=== PATIENT | male | born 1985 | race Caucasian/White ===

== ENCOUNTER 2017-02-12 09:23 | Emergency (ER) | payer OTHER ==
[~2017-02-12] VITALS: Ht 182.9 cm; Wt 78.2 kg
[2017-02-12 09:25] VITALS: TEMP 36.6; Ht 182.9 cm; Wt 78.2 kg
--- NOTE | 2017-02-12 09:50 | EMERGENCY ROOM VISIT NOTE ---
History Report prepared by Pamela: Griselda Puri Under the Supervision of: Dr. Cesar Thurston M.D. First contact with patient: 09:34 Chief Complaint: RESPIRATORY PROBLEMS Stated Complaint: PAIN ON LEFT SIDE W/DEEP BREATHS History of Present Illness The patient is a 32 year old male who presents to the Emergency Room with complaints of constant respiratory symptoms beginning this morning. The patient states that he woke up this morning and noticed that when he takes a deep breath he has pain in his lower left side that radiates into his left flank. He rates this pain as a 7/10 in severity and states that it only occurs with taking a deep breath. He denies cough. 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 He went to [facility] this morning and was sent to the ED for further evaluation. The patient denies any personal or family history of blood clots. Source of History: patient Onset: this morning Position: chest Symptom Intensity: 7/10 Timing: constant Modifying Factors (Worsening): breathing Associated Symptoms: No cough Review of Systems See HPI for pertinent positives & negatives. A total of 10 systems reviewed and were otherwise negative. Past Medical & Surgical Medical Problems: (1) Childhood asthma Surgical Problems: (1) Hx of cholecystectomy Family History Gallbladder disease Heart disease Social History Smoking Status: Never Smoker Smokeless Tobacco Use: No Alcohol Use: occasionally Marital Status: single Housing Status: lives alone Occupation Status: employed Current/Historical Medications Miscellaneous Medications None (Patient States No Home Meds) Allergies Coded Allergies: No Known Allergies (Unverified , NONE, 02/12/17) Physical Exam Vital Signs Date Time Temp Pulse Resp B/P (MAP) Pulse Ox O2 Delivery O2 Flow Rate FiO2 02/12/17 11:33 73 19 121/74 99 02/12/17 10:56 60 16 118/74 99 Room Air 02/12/17 10:02 100 Room Air 02/12/17 09:59 62 02/12/17 09:25 36.6 71 18 127/88 100 Room Air Physical Exam GENERAL: Patient is a healthy-appearing well-nourished 32 year old male. HEAD: Normocephalic atraumatic EYES: Ocular movements intact pupils equal and react to light OROPHARYNX mucous membranes are moist no exudates present no erythema or edema present NECK: Supple no nuchal rigidity CHEST: Good equal expansion LUNGS: Clear and equal to auscultation CARDIAC: Normal S1 and S2 ABDOMEN: Soft nontender no guarding BACK: No CVA tenderness EXTREMITIES: No pain upon palpation normal muscle strength in all groups no clubbing cyanosis or edema NEURO: Patient is following commands is answering questions appropriately. Alert and oriented x3 Cranial Nerves 2-12 grossly intact Medical Decision & Procedures ER Provider Diagnostic Interpretation: Radiology results as stated below per my review and radiologist interpretation: TWO VIEW CHEST CLINICAL HISTORY: Left-sided chest pain. FINDINGS: PA and lateral chest radiographs are obtained. No prior studies are available for comparison at the time of dictation. The cardiomediastinal silhouette is unremarkable. The lungs and pleural spaces are clear. There is no pneumothorax. The bony thorax appears intact. Cholecystectomy clips are seen in the right upper quadrant. IMPRESSION: No active disease in the chest. Electronically signed by: Carlos Wayne M.D. 02/12/2017 10:37 AM Dictated Date/Time: 02/12/2017 10:36 AM Laboratory Results 02/12/17 10:00 Red Blood Count 4.58, Mean Corpuscular Volume 95.2, Mean Corpuscular Hemoglobin 32.1, Mean Corpuscular Hemoglobin Concent 33.7, Mean Platelet Volume 9.4, Neutrophils (%) (Auto) 71.7, Lymphocytes (%) (Auto) 18.0, Monocytes (%) (Auto) 8.1, Eosinophils (%) (Auto) 1.7, Basophils (%) (Auto) 0.4, Neutrophils # (Auto) 5.78, Lymphocytes # (Auto) 1.45, Monocytes # (Auto) 0.65, Eosinophils # (Auto) 0.14, Basophils # (Auto) 0.03 02/12/17 10:00 Test 02/12/17 10:00 02/12/17 10:06 White Blood Count 8.06 K/uL (4.8-10.8) Red Blood Count 4.58 M/uL (4.7-6.1) Hemoglobin 14.7 g/dL (14.0-18.0) Hematocrit 43.6 % (42-52) Mean Corpuscular Volume 95.2 fL (80-100) Mean Corpuscular Hemoglobin 32.1 pg (25-34) Mean Corpuscular Hemoglobin Concent 33.7 g/dl (32-36) Platelet Count 206 K/uL (130-400) Mean Platelet Volume 9.4 fL (7.4-10.4) Neutrophils (%) (Auto) 71.7 % Lymphocytes (%) (Auto) 18.0 % Monocytes (%) (Auto) 8.1 % Eosinophils (%) (Auto) 1.7 % Basophils (%) (Auto) 0.4 % Neutrophils # (Auto) 5.78 K/uL (1.4-6.5) Lymphocytes # (Auto) 1.45 K/uL (1.2-3.4) Monocytes # (Auto) 0.65 K/uL (0.11-0.59) Eosinophils # (Auto) 0.14 K/uL (0-0.5) Basophils # (Auto) 0.03 K/uL (0-0.2) RDW Standard Deviation 40.6 fL (36.4-46.3) RDW Coefficient of Variation 11.8 % (11.5-14.5) Immature Granulocyte % (Auto) 0.1 % Immature Granulocyte # (Auto) 0.01 K/uL (0.00-0.02) Est Creatinine Clear Calc Drug Dose 150.4 ml/min Estimated GFR () 138.0 Estimated GFR (Non- 119.0 BUN/Creatinine Ratio 23.8 (10-20) Calcium Level 8.7 mg/dl (8.5-10.1) Total Bilirubin 0.6 mg/dl (0.2-1) Direct Bilirubin 0.1 mg/dl (0-0.2) Aspartate Amino Transf (AST/SGOT) 18 U/L (15-37) Alanine Aminotransferase (ALT/SGPT) 20 U/L (12-78) Alkaline Phosphatase 73 U/L (45-117) Total Creatine Kinase 121 U/L (39-308) Creatine Kinase MB 3.6 ng/ml (0.5-3.6) Creatine Kinase MB Ratio 3.0 (0-3.0) Troponin I < 0.015 ng/ml (0-0.045) Total Protein 7.4 gm/dl (6.4-8.2) Albumin 4.2 gm/dl (3.4-5.0) Lipase 116 U/L (73-393) Bedside Hemoglobin 15.0 g/dl (14.0-18.0) Bedside Hematocrit 44 % (42-52) Bedside D-Dimer 284 ng/mlFEU (0-450) Bedside Sodium 140 mEq/L (135-144) Bedside Potassium 4.2 mEq/L (3.3-5.0) Bedside Chloride 101 mEq/L (101-112) Bedside Total CO2 28 mEq/l (24-31) Anion Gap 17.0 mmol/L (16-25) Bedside Blood Urea Nitrogen 19 mg/dl (7-18) Bedside Creatinine 0.8 mg/dl (0.6-1.3) Bedside Glucose (other) 103 mg/dl (70-99) Bedside Ionized Calcium (Katy) 1.19 mmol/l (1.12-1.32) Labs reviewed by ED physician. Medications Administered Medications (Trade) Dose Ordered Sig/Stephen Route Start Time Stop Time Status Last Admin Dose Admin Acetaminophen (Tylenol Tab) 1,000 mg NOW STAT PO 02/12/17 10:47 02/12/17 10:48 DC 02/12/17 10:47 1,000 MG Albuterol/ Ipratropium (Duoneb) 3 ml NOW STAT INH 02/12/17 10:47 02/12/17 10:48 DC 02/12/17 10:47 3 ML ECG Indication: SOB/dyspnea Rate (beats per minute): 58 Rhythm: sinus bradycardia Findings: no acute ischemic change, no ectopy ED Course 0934: Past medical records reviewed. The patient was evaluated in room C3. A complete history and physical examination was performed. I attempted to open the patient's chest x-ray from [facility], but this was unsuccessful. 1047: DuoNeb 3 ml INH, Tylenol tab 1000 mg PO 1105: I reassessed the patient at this time. He is feeling better and resting comfortably. I discussed the results and treatment plan with the patient. I answered all pertaining questions that he had. He expressed understanding and verbalized agreement. The patient will be discharged home. Medical Decision Etiologies such as cardiac ischemia, aortic dissection, pulmonary embolism, pneumonia, pneumothorax, musculoskeletal, infections, pericarditis, myocarditis , esophageal rupture, gastrointestinal, as well as others were entertained. Medication Reconciliation: I attest that I have personally reviewed the patient' s current medication list Blood Pressure Screening: Patient was found to have an elevated blood pressure and was referred to their primary care doctor for recheck and further treatment This is a 32-year-old male who [facility] concerns that the patient is having low back pain when he takes a deep breath. The patient has a history of asthma however has no evidence of wheezing on examination. Based on the nature of the complaint patient was sent for two-view chest x-ray however this did not show any acute process. In addition the patient has a normal d- dimer EKG as well as CK-MB and troponin fractions. Based on these findings I felt that the patient can be safely discharged home for follow-up with his primary care physician. Patient was in agreement with the treatment plan. Impression Primary Impression: Back pain Scribe Attestation The scribe's documentation has been prepared under my direction and personally reviewed by me in its entirety. I confirm that the note above accurately reflects all work, treatment, procedures, and medical decision making performed by me. Departure Information Dispostion Home / Self-Care Referrals No Doctor, Assigned (PCP) Forms HOME CARE DOCUMENTATION FORM, IMPORTANT VISIT INFORMATION, WORK / SCHOOL INSTRUCTIONS Patient Instructions Back Pain - [facility], My [facility] Additional Instructions You were found to have an elevated blood pressure today (>120 sytolic or >90 diastolic). Per medicare guidelines, you need to follow up with this blood pressure screening with your Primary Care Physician (PCP). For a new PCP call [phone]. You have been examined and treated today on an emergency basis only. This is not a substitute for, or an effort to provide, complete comprehensive medical care. It is impossible to recognize and treat all injuries or illnesses in a single emergency department visit. It is therefore important that you follow up closely with your PCP. Call as soon as possible for an appointment. Thank you for your time and consideration. I look forward to speaking with you again soon. Please don't hesitate to call us if you have any questions. Problem Qualifiers Primary Impression: Back pain Back pain location: thoracic back pain Chronicity: acute Back pain laterality: left Qualified Codes: M54.6 - Pain in thoracic spine
[2017-02-12 10:02] VITALS: O2SAT 100
[2017-02-12 10:24] LABS: ISTAT CREATININE 0.8 mg/dl (0.6-1.3); ISTAT IONIZED CALCIUM 1.19 mmol/l (1.12-1.32)
[2017-02-12 10:31] LABS: BASO % 0.4 %; BASO ABS # 0.03 K/uL (0-0.2); COMPLETE YES; EOS % 1.7 %; HEMATOCRIT 43.6 % (42-52); IG% 0.1 %; LYMPH ABS # 1.45 K/uL (1.2-3.4); MEAN CELL VOLUME 95.2 fL (80-100); MEAN CORPUSCULAR HEMOGLOBIN 32.1 pg (25-34); MEAN CORPUSCULAR HGB CONC 33.7 g/dl (32-36); MEAN PLATELET VOLUME 9.4 fL (7.4-10.4); MONO % 8.1 %; NEUT % 71.7 %; PLATELET COUNT 206 K/uL (130-400); RED BLOOD COUNT 4.58 M/uL (4.7-6.1); WHITE BLOOD COUNT 8.06 K/uL (4.8-10.8)
--- NOTE | 2017-02-12 10:38 | DIAGNOSTIC IMAGING REPORT ---
TWO VIEW CHEST CLINICAL HISTORY: Left-sided chest pain. FINDINGS: PA and lateral chest radiographs are obtained. No prior studies are available for comparison at the time of dictation. The cardiomediastinal silhouette is unremarkable. The lungs and pleural spaces are clear. There is no pneumothorax. The bony thorax appears intact. Cholecystectomy clips are seen in the right upper quadrant. IMPRESSION: No active disease in the chest. Electronically signed by: Carlos Wayne M.D. 02/12/2017 10:37 AM Dictated Date/Time: 02/12/2017 10:36 AM
[2017-02-12] MEDS ORDERED: ACETAMINOPHEN 500 MG TAB PO STA (10:47)
[2017-02-12] MEDS ORDERED: ALBUT/IPRATROP 3MG/0.5MG NEB 3 ML VIAL INH STA (10:47)
[2017-02-12 10:51] LABS: ALT/SGPT 20 U/L (12-78); AST/SGOT 18 U/L (15-37); BLOOD UREA NITROGEN 18 mg/dl (7-18); BUN/CREATININE RATIO 23.8 (10-20); CALCIUM 8.7 mg/dl (8.5-10.1); CARBON DIOXIDE 32 mmol/L (21-32); CHLORIDE 106 mmol/L (98-107); CREATININE 0.76 mg/dl (0.60-1.40); GLUCOSE 97 mg/dl (70-99); POTASSIUM 4.4 mmol/L (3.5-5.1); SODIUM 143 mmol/L (136-145)
[2017-02-12 10:56] LABS: ALKALINE PHOSPHATASE 73 U/L (45-117)
[2017-02-12 11:33] VITALS: BP 121/74; PULSE 73; O2SAT 99
== END 2017-02-12 11:35 | disposition home or self-care (01) ==
LOC: C.EDB 09:25 → C.EDC 11:35
DX: M54.5 Low back pain (principal); R06.00 Dyspnea, unspecified; R00.1 Bradycardia, unspecified; Z90.49 Acquired absence of other specified parts of digestive tract; Z83.79 Family history of other diseases of the digestive system; Z82.49 Family history of ischemic heart disease and other diseases of the circulatory system